=== PATIENT | female | born 1955 | race Caucasian/White ===

== ENCOUNTER 2016-08-24 16:49 | Emergency (ER) | payer BC ==
[2016-08-24] MEDS ORDERED: SODIUM CHLORIDE 0.9% 1,000 ML ONE ×2 (17:12→22:02)
[2016-08-24] MEDS ORDERED: ONDANSETRON 4 MG VIAL ONE ×2 (17:23→22:02)
[2016-08-24] MEDS ORDERED: KETOROLAC 30 MG/ML VIAL ONE (23:20)
== END 2016-08-24 23:51 | disposition home or self-care (01) ==
LOC: ER 16:49
CPT/HCPCS: 36415; 80053; 81001; 83690; 85025; 87088; 96361; 96374; 96375